=== PATIENT | male | born 1975 | race Caucasian/White ===

== ENCOUNTER 2016-12-27 13:29 | Emergency (ER) | payer OTHER ==
[~2016-12-27] VITALS: Ht 185.4 cm; Wt 100.0 kg
[2016-12-27 13:33] VITALS: BP 153/96; PULSE 86; RESP 20; O2SAT 97
--- NOTE | 2016-12-27 13:59 | ED.REPORT ---
HPI-Psychiatric Illness Date of Service Dec 27, 2016 ED Provider: Windy Clayton MD Patient is a 41 year old male who presents to the ED via police s/p telling police he needed to be brought to the hospital. He has been staying at a [facility] but refused to leave so police were called. When they arrived, he demanded to go to the hospital and would not say why. He was noted to have a dry fifth of vodka bottle in the room with him. He presents laying on the bed grunting. He only answers direct questions. He does deny any medical issues to be addressed. His alcohol level is .086. He does report that he is from [place] and doesn't remember how he got to [place]. When asked if he is interested in going to [facility], he says yes and voluntarily gives a urine specimen. Nursing Notes Stated Complaint: INTOXICATION Nursing Notes Reviewed: Yes Allergies: Coded Allergies: No Known Allergies (Unverified , 12/27/16) General Time Seen by MD: 13:47 Chief Complaint Other (Intoxication ) Hx Obtained From: Police Unable to Obtain Hx: Uncooperative, Intoxicated Arrived By: Police Risk-Psychiatric Illness Suicide Risk Stratification Suicide Risk Factors - Adult: : Alcohol useNo: Substance abuse RF Statements: Risk factors reviewed Past Medical History Past Medical History Denies Past Surgical History Denies Smoking History Never Smoker Social History Drinks daily, denies meth and heroin use Drug Use: THC Other Social History: From out of town ([place]) Ambulatory Status Independent Review of Systems Unable to Obtain ROS Uncooperative, Intoxicated, Mental status Physical Exam Initial Vital Signs Vital Signs (First) Date Time Temp Pulse Resp B/P Pulse Ox O2 Delivery O2 Flow Rate FiO2 12/27/16 13:33 36.7 86 20 153/96 97 Room Air Initial VS: Reviewed, Vital signs abnormal Neck: Full range of motion Respiratory: Breath sounds normal, Clear to auscultation, No respiratory distress Cardiovascular: Regular rate & rhythm, Heart sounds normal General/Constitutional: Awake, Alert, No acute distress intially upset but calms during interview Neurologic: Oriented X3, Speech NL slow to answer, only answers direct questions. Psychiatric: Not suicidal, Not homicidal intially would not make eye contact more appropriate and focused by end of interview Head / Eyes: Atraumatic, Normocephalic, PERRL, EOMI Respiratory / Chest: Atraumatic, Breath sounds NL, Breath sounds = bilat, No respiratory distress Cardiovascular: Heart rate NL Skin: Warm, Dry Rash / Lesion Notes: well perfused Upper Extremity / MS: Atraumatic Lower Extremity / Pelvis / MS: Atraumatic, No edema Re-Eval/Medical Decision Re-Evaluation/Progress : Time of Eval: 14:03 Re-Evaluation/Progress Note: Patient is asked if he would like to go home and he states yes. Patient is otherwise uncooperative. Discussed plan for discharge. Patient understands and agrees with plan. All questions addressed at this time. Counseled Regarding: Diagnosis, Need for follow-up, When/why to return to ED Discharge & Departure Shift Change Sign-Out Patient Care Transferred: Yes Discussed Complaint(s): Yes Laboratory Evaluation: Ordered, not yet done Additonal Information: Transfer of care to Dr. Bertrand at 1500 Impression: Primary Impression: Alcohol use )( Condition at Discharge: No danger to self Disposition: Home Discharge Condition All VS Reviewed: Yes Condition: Stable Referrals: NOPCP Care Transferred to: Dr. Bertrand Care Transferred at: 15:00 Scribdenise Attestation Portions of this note were transcribed by Mary Ellis. I, Dr. Clayton, personally performed the history, physical exam, and medical decision making; I reviewed and confirmed the accuracy of the information in the transcribed note. Signed by: Jewels Britt, 12/27/16 Windy Clayton MD Dec 27, 2016 13:59 MARY ELLIS Dec 27, 2016 14:06
[2016-12-27] MEDS ORDERED: LORazepam 2 mg Tablet PO ONE (15:00)
[2016-12-27 15:14] VITALS: BP 145/78; PULSE 83; RESP 11; O2SAT 97
[2016-12-27] MEDS ORDERED: Multivitamin w/Vit K Inj 10 ML, Thiamine Inj 100 MG, Folic Acid Inj 1 MG, Magnesium Sul... IV ONE ×5 (16:48)
[2016-12-27 17:03] LABS: BASOPHILS % (AUTO) 0.2 % (0-3); EOSINOPHILS % (AUTO) 0.1 % (0-5); Mean Corpuscular Hemoglobin 29.7 pg (27.0-35.0); Mean Corpuscular Volume 84.2 fL (81-100); NEUTROPHILS % (AUTO) 78.2 % (40-74); Platelet Count 224 bil/L (150-400)
[2016-12-27 17:36] LABS: Magnesium 1.9 mg/dL (1.6-2.6)
[2016-12-27 18:13] VITALS: BP 147/98; PULSE 75; O2SAT 97
--- NOTE | 2016-12-27 18:28 | DRSVH ---
PROCEDURE: CT BRAIN WITHOUT CONTRAST ([id number]) INDICATIONS: 41 year-old male with confusion. TECHNIQUE: Noncontrast 4.5 mm thick angled axial sections acquired from the foramen magnum to the vertex, with c oronal reformats. COMPARISON: None. FINDINGS: Image quality: Excellent. CSF spaces: Basal cisterns are patent. No extra-axial fluid collections. Ventricles are normal in size and shape. Brain: No midline shift. No intracranial masses or hemorrhage. Zimmerman-white matter interface is norm al. Skull and face: Calvarium and visualized facial bones are intact, without suspicious lesions. Sinuses: Visualized sinuses and mastoids are clear. IMPRESSION: No acute intracranial abnormalities. Dictated by: Jam Flores M.D. on 12/27/2016 at 18:24 Approved by: Jam Flores M.D. on 12/27/2016 at 18:26
[2016-12-27] MEDS ORDERED: Buprenorphine 2 mg SL Tablet SL ONE (23:35)
== END 2016-12-28 03:03 | disposition home or self-care (01) ==
LOC: SED 13:29 → EDBD 13:29 → SED 12-28 03:03
DX: F10.129 Alcohol abuse with intoxication, unspecified (principal); F43.0 Acute stress reaction; F12.10 Cannabis abuse, uncomplicated; Z59.0 Homelessness
CPT/HCPCS: 36415; 70450; 80053; 81002; 82075; 83735; 84443; 85025; 96374; 99285; G0480; J3475; J7030